=== PATIENT | male | born 1955 | race Caucasian/White ===

== ENCOUNTER 2025-04-12 10:19 | Emergency (ER) | payer OTHER, MEDICAID ==
[~2025-04-12] VITALS: Ht 165.1 cm; Wt 91.0 kg
[2025-04-12 10:31] VITALS: TEMP 36.7; O2SAT 100
[2025-04-12] MEDS: KETOROLAC 15MG/ML VIAL IM ONE (13:00)
[2025-04-12] MEDS ORDERED: METH2.5T MT (13:00)
[2025-04-12] MEDS ORDERED: ACETAMINOPHEN 325MG TABLET PO ONE (13:00)
[2025-04-12] MEDS ORDERED: HYDR200T80 MT (13:03)
[2025-04-12] MEDS ORDERED: METH4TAB95 MT (13:09)
[2025-04-12] MEDS ORDERED: HYDR-4001 MT (13:10)
[2025-04-12] MEDS: HYDROCODONE/ACETAMINOPHEN 5/325MG TABLET PO ONE (13:13)
[2025-04-12 13:37] VITALS: BP 174/89; PULSE 69; RESP 18; O2SAT 100
== END 2025-04-12 13:37 | disposition home or self-care (01) ==
LOC: ER 10:19
DX: M06.9 Rheumatoid arthritis, unspecified (principal); Z76.0 Encounter for issue of repeat prescription; Z98.890 Other specified postprocedural states; Z79.899 Other long term (current) drug therapy
CPT/HCPCS: 99283; J1885